=== PATIENT | female | born 1950 | race Asian ===

== ENCOUNTER → 2020-03-03 | Outpatient (CLI) | payer OTHER ==
--- NOTE | 2020-03-03 14:57 | 2DMMODE ---
[place] [address] 2 D/M-MODE ECHOCARDIOGRAM Name: KIRANYAJAIRA Rani Room: [facility]#: [id number] Admission: 03/03/20 Attend Phys: Janine Waller Discharge: Date of : 52 Date of Service: 03/03/20 1456 Report #: [id number] THIS REPORT FOR: cc: Randy Parker MD, Tuongvan T. MD Liston, Michael J. MD [facility] ~ APPROVED REPORT Study performed: 03/03/2020 10:57:37 EXAM: Comprehensive 2D, Doppler, and color-flow Echocardiogram Patient Location: Out-Patient Status: routine BSA: 1.66 HR: 50 bpm BP: 126/70 mmHg Rhythm: NSR Other Information Study Quality: Good 2D Dimensions IVSd: 7.98 (7-11mm) LVOT Diam: 18.34 (18-24mm) LVDd: 41.68 mm PWd: 8.45 (7-11mm) Ascending Ao: 30.05 (22-36mm) LVDs: 25.90 (25-40mm) Aortic Root: 24.01 mm Volumes Left Atrial Volume (Systole) LA ESV Index: 22.20 mL/m2 Aortic Valve AoV Peak Dov.: 1.60 m/s AO Peak Gr.: 10.20 mmHg LVOT Max P.39 mmHg AO Mean Gr.: 5.55 mmHg LVOT Mean P.95 mmHg LVOT Max V: 1.05 m/s AO V2 VTI: 36.55 cm LVOT Mean V: 0.64 m/s GUILLERMO (VTI): 1.73 cm2 LVOT V1 VTI: 23.94 cm Mitral Valve E/A Ratio: 1.53 MV Decel. Time: 217.32 [place] [address] 2 D/M-MODE ECHOCARDIOGRAM Name: YAJAIRA KIRAN Room: [facility]#: [id number] Admission: 03/03/20 Attend Phys: Janine Waller Discharge: Date of : 52 Date of Service: 03/03/20 1456 Report #: [id number] MV E Max Dov.: 0.88 m/s MV PHT: 63.02 ms MVA (PHT): 3.49 cm2 TDI E/Lateral E': 8.00 E/Medial E': 8.80 Medial E' Dov.: 0.10 m/s Lateral E' Dov.: 0.11 m/s Pulmonary Valve PV Peak Dov.: 0.88 m/s PV Peak Gr.: 3.10 mmHg Tricuspid Valve RAP Estimate: 5.00 mmHg TR Peak Gr.: 22.03 mmHg RVSP: 27.00 mmHg PA Pressure: 27.00 mmHg Left Ventricle The left ventricle is normal size. There is normal LV segmental wall motion. There is normal left ventricular wall thickness. Left ventricular systolic function is normal. LVEF is 55-60%. Left ventricular filling pattern is normal for age. Right Ventricle The right ventricle is normal size. The right ventricular systolic function is normal. Atria The left atrium size is normal. The right atrium size is normal. Aortic Valve The aortic valve is normal in structure. No aortic regurgitation is present. There is no aortic valvular stenosis. Mitral Valve The mitral valve is normal in structure. Mild mitral regurgitation. No evidence of mitral valve stenosis. Tricuspid Valve The tricuspid valve is normal in structure. Mild tricuspid regurgitation. No pulmonary hypertension. Pulmonic Valve The pulmonary valve is normal in structure. There is no pulmonic [place] [address] 2 D/M-MODE ECHOCARDIOGRAM Name: YAJAIRA KIRAN Rani Room: [facility]#: [id number] Admission: 03/03/20 Attend Phys: Janine Waller Discharge: Date of : 52 Date of Service: 03/03/20 1456 Report #: [id number] Great Vessels The aortic root is normal in size. IVC is normal in size and collapses >50% with inspiration. Pericardium There is no pericardial effusion. <Conclusion> The left ventricle is normal size. There is normal left ventricular wall thickness. Left ventricular systolic function is normal. LVEF is 55-60%. Left ventricular filling pattern is normal for age. Mild mitral regurgitation. Mild tricuspid regurgitation. No pulmonary hypertension. IVC is normal in size and collapses >50% with inspiration. <ELECTRONICALLY SIGNED> By: Minh Miguel MD, FACC 03/03/20 1456 1456 1456 Minh Miguel MD, FACC /INF
== END ==
LOC: M.RAD 09:00
DX: Z12.31 Encounter for screening mammogram for malignant neoplasm of breast (principal); Z78.0 Asymptomatic menopausal state; R94.31 Abnormal electrocardiogram [ECG] [EKG]; M85.88 Other specified disorders of bone density and structure, other site; I08.1 Rheumatic disorders of both mitral and tricuspid valves